=== PATIENT | female | born 1975 | race African-American/Black ===

== ENCOUNTER → 2016-08-28 | Outpatient (CLI) | payer OTHER ==
[2015-09-11 12:25] VITALS: BP 117/74
[~2016-08-28] MED LIST: HYDR-971 PO; MULT1TAB52 PO; ONDA4TAB7 PO
--- NOTE | 2016-08-28 17:48 | KCIC ---
Bilateral digital screening mammograms: Reason for examination: Routine screening. Comparison is made to previous studies dated 07/16/2015 and 2014. The skin and nipples show no abnormalities. No abnormal axillary lymph nodes are seen. The breast parenchyma shows scattered fibroglandular density. (Breast density: Category B.) There continue to be small nodules at the 9:00 and 10:00 B position of the right breast with adjacent biopsy clip which have not changed. There are no new dominant masses, suspicious calcifications or architectural distortions. Impression: No evidence of malignancy. Recommend routine screening. BI-RADS Category 2: Benign. "Our facility is accredited by the [employer] Mammography [employer]." This patient's information has been entered into a reminder system for the patient to be notified with the results of her examination and a target date for the next mammogram. Electronically signed by: Jackie Platt MD (08/28/2016 5:44 PM)
== END | disposition home or self-care (01) ==
LOC: KCIC MAMMO 12:39
PROVIDERS: ATTEND Obstetrics & Gynecology
DX: Z12.31 Encounter for screening mammogram for malignant neoplasm of breast (principal)
CPT/HCPCS: G0202; 77067

== ENCOUNTER → 2017-10-08 | Outpatient (CLI) | payer OTHER | END | disposition home or self-care (01) | LOC: KCIC MAMMO 10:54 | DX: Z12.31 Encounter for screening mammogram for malignant neoplasm of breast (principal); E78.00 Pure hypercholesterolemia, unspecified; K21.9 Gastro-esophageal reflux disease without esophagitis | CPT/HCPCS: 77067 ==

== ENCOUNTER → 2018-10-10 | Outpatient (CLI) | payer OTHER ==
[2015-09-11 12:25] VITALS: BP 117/74
[~2018-10-10] MED LIST changes: +HYDR-3164 PO; -HYDR-971 PO
--- NOTE | 2018-10-10 12:01 | KCIC ---
Bilateral digital screening mammograms: Reason for examination: Routine screening. Comparison is made to previous studies dated 10/08/2017 and 08/28/2016. Interpretation was made with the benefit of CAD. The skin and nipples show no abnormalities. No abnormal axillary lymph nodes are seen. The breast parenchyma shows scattered fibroglandular density. (Breast density: Category B.) There continues to be a small nodular density in the 9:00 position posteriorly in the right breast which is stable. There are no new dominant masses, suspicious calcifications or architectural distortions. Biopsy clips are present on the right. Impression: No evidence of malignancy. Recommend routine screening. BI-RADS category 2: Benign "Our facility is accredited by the [employer]ammography [employer]." This patient's information has been entered into a reminder system for the patient to be notified with the results of her examination and a target date for the next mammogram. Electronically signed by: Jackie Platt MD (10/10/2018 11:59 AM) [id number]
== END | disposition home or self-care (01) ==
LOC: KCIC MAMMO 11:13
PROVIDERS: ATTEND Family Medicine
DX: Z12.31 Encounter for screening mammogram for malignant neoplasm of breast (principal)
CPT/HCPCS: 77067

== ENCOUNTER → 2019-10-16 | Outpatient (CLI) | payer OTHER ==
[2015-09-11 12:25] VITALS: BP 117/74
[~2019-10-16] MED LIST changes: +MULT-445 PO; -MULT1TAB52 PO
--- NOTE | 2019-10-16 18:26 | KCIC ---
Bilateral digital screening mammograms: Reason for examination: Routine screening. Comparison is made to previous studies dated back to 08/28/2016. Interpretation was made with the benefit of CAD. The skin and nipples show no abnormalities. No abnormal axillary lymph nodes are seen. The breast parenchyma shows scattered fibroglandular density. (Breast density: Category B.) There continues to be a small nodular parenchymal density at 9:00 B position of the right breast with an adjacent biopsy clip present. This is unchanged. There is also a biopsy clip at the 10:00 B position. There are no new dominant masses, suspicious calcifications or architectural distortions. Impression: No evidence of malignancy. Recommend routine screening. BI-RADS Category 2: Benign. "Our facility is accredited by the [employer] Mammography [employer]." This patient's information has been entered into a reminder system for the patient to be notified with the results of her examination and a target date for the next mammogram. Electronically signed by: Jackie Platt MD (10/16/2019 6:22 PM) [email or web address]
== END | disposition home or self-care (01) ==
LOC: KCIC MAMMO 13:54
PROVIDERS: ATTEND Family Medicine
DX: Z12.31 Encounter for screening mammogram for malignant neoplasm of breast (principal); N64.89 Other specified disorders of breast
CPT/HCPCS: 77067

== ENCOUNTER → 2020-10-30 | Outpatient (CLI) | payer OTHER ==
[2015-09-11 12:25] VITALS: BP 117/74
--- NOTE | 2020-10-30 17:12 | KCIC ---
Bilateral digital screening mammograms: Reason for examination: Routine screening. Comparison is made to previous studies dated back to 08/28/2016. Interpretation was made with the benefit of CAD. The skin and nipples show no abnormalities. No abnormal axillary lymph nodes are seen. The breast par enchyma shows scattered fibroglandular density. (Breast density: Category B.) Right breast: New focal asymmetry at the 12:00 position, middle depth. Unchanged appearance of biopsy clips in the right upper outer breast. Left breast: No suspicious masses, architectural distortion, or suspicious calcifications. Impression: New focal asymmetry at the 12:00 position, middle depth within the right breast. BIRADS 0. Additional Imaging required. Recommend spot compression views with tomosynthesis, followed with possible right breast ultrasound. Electronically signed by: Flo Rudd DO (10/30/2020 5:09 PM) [email or web address]
== END ==
LOC: KCIC MAMMO 13:54
PROVIDERS: ATTEND Family Medicine
DX: Z12.31 Encounter for screening mammogram for malignant neoplasm of breast (principal)
CPT/HCPCS: 77067

== ENCOUNTER → 2020-11-27 | Outpatient (CLI) | payer OTHER ==
[2015-09-11 12:25] VITALS: BP 117/74
--- NOTE | 2020-11-27 17:17 | KCIC ---
Right breast diagnostic digital mammograms: Reason for examination: Nodular density on screening mammogram. Comparison is made to mammographic exam dated the 2020. [place] compression views were obtained of the right breast in CC and oblique projections. Nodularity s een on screening appears to be less the following but further evaluation with ultrasound will follow. IMPRESSION: Nodularity is less prominent than on previous exam. Ultrasound to follow. BI-RADS Category 0: Incomplete: Need additional imaging evaluation. Right breast ultrasound: Ultrasound examination of the right breast was performed. At the 10:00 position 4.5 cm from the nipple, there appears to be a small 1.1 cm hypoechoic circumscr ibed lesion in parallel orientation consistent with a small fibroadenoma. At the 11:00 position 4.5 c m from the nipple, there is a 4.6 mm hypoechoic circumscribed lesion in parallel orientation probably representing small fibroadenoma or fibrocystic change. No abnormal appearing lymph nodes are seen in the axilla. IMPRESSION: Small benign-appearing nodules at the 10:00 and 11:00 positions which probably represent fibroadenoma or fibrocystic nodules. Recommend 6 month follow-up with ultrasound. BI-RADS Category 3: Probably Benign. "Our facility is accredited by the [employer] Mammography [employer]." This patient's information has been entered into a reminder system for the patient to be notified wit h the results of her examination and a target date for the next mammogram. Electronically signed by: Jackie Platt MD (11/27/2020 5:15 PM) [email or web address]
== END ==
LOC: KCIC MAMMO 09:51
PROVIDERS: ATTEND Family Medicine
DX: R92.2 Inconclusive mammogram (principal)
CPT/HCPCS: 76641; 77065

== ENCOUNTER → 2021-05-27 | Outpatient (CLI) | payer OTHER ==
[2015-09-11 12:25] VITALS: BP 117/74
--- NOTE | 2021-05-27 15:04 | KCIC ---
Right breast ultrasound: Reason for examination: Follow-up nodules. Comparison is made to previous study dated 11/27/2020. Ultrasound examination of the right breast and axilla was performed. At the 10:00 position 4.5 cm from the nipple, there continues to be a 1.1 cm hypoechoic lesion in par allel orientation which is stable. At the 11:00 position 4.5 cm from the nipple, there continues to b e a 3.8 mm hypoechoic fibrocystic type nodule which is stable. No new cystic or solid nodules are see n. No abnormal appearing lymph nodes are seen in the axilla. IMPRESSION: Stable nodules at the 10:00 and 11:00 positions. No suspicious abnormality seen. Recommend continued 6 month follow-up with ultrasound at the time of bilateral mammograms. BI-RADS Category 3: Probably Benign. "Our facility is accredited by the [employer] Mammography [employer]." This patient's information has been entered into a reminder system for the patient to be notified wit h the results of her examination and a target date for the next mammogram. Electronically signed by: Jackie Platt MD (05/27/2021 3:02 PM) [email or web address]
== END ==
LOC: KCIC US 14:16
DX: N63.11 Unspecified lump in the right breast, upper outer quadrant (principal)
CPT/HCPCS: 76641